=== PATIENT | female | born 1945 | race Caucasian/White ===

== ENCOUNTER → 2020-03-12 | Outpatient (CLI) | payer MEDICARE, OTHER ==
[2015-05-13 00:40] VITALS: BP 177/77
[~2020-03-12] MED LIST: ALBU2.5V8 IH; ASPI-630 PO; ASPI325T8 PO; FOLI1TAB6 PO; FURO-69 PO; INSU100V8 SQ; METF500T16 PO; METO1TAB11 PO; NAPR220T70 PO; POTA20TA84 PO; SIMV20TA PO; TAGAMENT PO; [UNRECOGNIZED DRUG - REMARK] PO; advair; allopurinol PO; diovan PO; symbicort PO
--- NOTE | 2020-03-12 13:36 | RAD ---
MR#: [id number] Date of Study: 03/12/2020 Ordering Physician: LILLIAN MENCHACA, Referring Physician: LILLIAN MENCHACA, Tech: Elsy Owen, MARLA, RVT, RTR APPROVED REPORT Patient Location: OUT-PATIENT Indications Claudication:Bilaterally Gangrene Left 3rd toe Risk Factors Obesity Diabetes VELOCITY AND DOPPLER WAVEFORM ANALYSIS RIGHT cm/secWaveformSeverity LEFT cm/secWaveform Severity pCFA 179.0pCFA 200.0 Prof Fem Art. 182.0Prof Fem Art. 56.0 Fem Art Prox. 139.0Fem Art Prox. 133.0 Fem Art Mid. 98.0Fem Art Mid. 170.0 Fem Art Dist. 107.0Fem Art Dist. 184.0 Pop Art(Fossa) 109.0Pop Art(AK) 290.0 MANAGER ER Prox. 75.0PTA Prox. 80.0 MANAGER ER Dist. 50.0PTA Dist. 34.0 Per Art Prox. 74.0Per Art Prox. 130.0 ANTONI Prox. 53.0ATA Prox. Occluded (100%) DPA 107DPA 113 Findings On the right grayscale images demonstrate mild diffuse plaque of the lower extremity. Waveforms are mostly biphasic. There is probable mild to moderate disease involving the right common femoral arter y. No focal obstruction is noted in the SFA or popliteal artery. There are normal velocities in the right lower extremity with three-vessel runoff. On the left there are biphasic waveforms from the common femoral artery to the popliteal artery. At the level of the popliteal artery there is likely a greater than 75% stenosis with distal monophasic waveforms. Posterior tibial artery and anterior tibial artery velocities are not well visualized. T here is likely collateral flow to the dorsalis pedis artery and a monophasic wave pattern. The peron eal artery appears to be patent. Critical Notification Critical Value: No <Conclusion> 1. 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
--- NOTE | 2020-03-12 13:37 | RAD ---
MR#: [id number] Date of Study: 03/12/2020 Ordering Physician: DANN JERRY, Referring Physician: DANN JERRY, Tech: Elsy Owen RDMS, [place], RTR APPROVED REPORT Bilateral Lower Extremity Venous Study for DVT Patient Location: OUT-PATIENT Indications Lower Extremity Pain: Bilateral Left Gangrene 3rd Toe Risk Factors Obesity Diabetic Findings The bilateral lower extremity deep veins were evaluated for thrombus with color Doppler, spectral and grayscale images. On the right the grayscale images of the common femoral, superficial femoral and popliteal veins do n ot demonstrate any evidence of thrombus and these veins appear to be compressible. The below-knee vei ns were not well visualized but grossly appear to be compressible. Spectral imaging and color Doppler do not reveal any evidence of obstruction to flow with normal respirophasic variation above the knee . Below the knee there is spontaneous flow noted. On the left, the grayscale images of the common femoral, superficial femoral and popliteal veins do n ot demonstrate any evidence of thrombus and these veins appear to be compressible. The below-knee vei ns again were not well visualized but grossly appear to be compressible. Spectral imaging and color D oppler do not reveal any evidence of obstruction to flow with normal respirophasic variation above th e knee. The below-knee veins demonstrate spontaneous flow. Incidental note is made of a large right-sided Gomes cyst measuring 7.4 x 3 x 1.5 cm. Critical Notification Critical Value: No <Conclusion> 1. No no DVT in the bilateral lower extremities. Technically difficult study due to body habitus. Signed by : Tim Hylton, Electronically Approved : 03/12/2020 13:37:38
== END | disposition home or self-care (01) ==
LOC: US 08:21
PROVIDERS: ATTEND Internal Medicine Cardiovascular Disease
DX: I70.203 Unspecified atherosclerosis of native arteries of extremities, bilateral legs (principal); M71.22 Synovial cyst of popliteal space [Baker], left knee; M71.21 Synovial cyst of popliteal space [Baker], right knee
CPT/HCPCS: 93925; 93970